=== PATIENT | male | born 1970 | race Two or more races ===

== ENCOUNTER 2024-12-25 12:30 | Emergency (ER) | payer OTHER ==
[~2024-12-25] VITALS: Ht 167.6 cm; Wt 68.0 kg
[2024-12-25] MEDS ORDERED: HYDR100T27 PO (13:18)
[2024-12-25] MEDS ORDERED: DIPH25CA83 PO (13:18)
[2024-12-25] MEDS ORDERED: SODI10PO PO (13:18)
[2024-12-25] MEDS ORDERED: FURO40TA5 PO (13:18)
[2024-12-25] MEDS ORDERED: LINA145C PO (13:18)
[2024-12-25] MEDS ORDERED: SEVE2.4P3 PO (13:18)
[2024-12-25] MEDS ORDERED: NEOMY/BACITRA/POLYMYXIN B OINT UD PACKET TP ONE (13:46)
[2024-12-25 15:49] VITALS: BP 150/92
[2024-12-25 16:37] VITALS: BP 150/92; TEMP 210.6; O2SAT 95
== END 2024-12-25 16:37 | disposition home or self-care (01) ==
LOC: ER 12:30
DX: N18.6 End stage renal disease (principal); F20.9 Schizophrenia, unspecified; F39 Unspecified mood [affective] disorder; R07.9 Chest pain, unspecified; Z79.899 Other long term (current) drug therapy; Z88.7 Allergy status to serum and vaccine; Z99.2 Dependence on renal dialysis; Z87.39 Personal history of other diseases of the musculoskeletal system and connective tissue
CPT/HCPCS: 71045; A4606; A4663